=== PATIENT | female | born 1995 | race Caucasian/White ===

== ENCOUNTER 2020-04-28 16:21 | Emergency (ER) | payer OTHER, SELFPAY ==
--- NOTE | ~2020-04-28 | XR_ITS ---
EXAMINATION: XR shoulder LT min 2V DATE: 04/28/2020 17:24 INDICATION: Left shoulder pain. Injury. TECHNIQUE: 4 views of left shoulder were obtained. COMPARISON: None. FINDINGS: Bone alignment is normal. No fracture. Joint spaces are well maintained. IMPRESSION: 1. Normal left shoulder. Reviewed, dictated and finalized at location A. [employer] IMPRESSION: 1. Normal left shoulder.
[2020-04-28 16:40] VITALS: BP 142/74; PULSE 84; RESP 18; TEMP 36.6; O2SAT 100
--- NOTE | 2020-04-28 17:03 | ED.UPPEXIN ---
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 Patient approximately 2 days ago was lifting a patient and felt a pop or a snap in her left shoulder area patient used ice and took a dose of ibuprofen prior to arrival to the emergency department. Currently she is having pain specially with movement although she has good range of motion it is tender and painful with with palpation and with movement. There is no swelling no bruising. complaint: injury to: left and shoulder Other Extremity Injury: Left: shoulder Handedness: right Place: work Severity: moderate Severity scale (1-10): 7 Relieving factors: cold therapy, medication and rest Exacerbating factors: movement of extremity Context: other ( During heavy lifting) Associated symptoms: denies other symptoms Treatments prior to arrival: cold therapy and NSAIDS Related Data Allergies Allergy/AdvReac Type Severity Reaction Status Date / Time azithromycin Allergy Unknown Verified 04/28/20 17:02 Penicillins Allergy Unknown Verified 04/28/20 17:02 Sulfa (Sulfonamide Allergy Unknown Verified 04/28/20 17:02 Antibiotics) Review of Systems Review of Systems: All systems reviewed & are unremarkable except as noted in HPI and below PMFSH Past Medical History Medical History Patient denies medical problems Exam Const: General: no acute distress and alert Orientation/consciousness: patient oriented x3 HENMT: Head: normal to inspection Eyes: Conjunctivae: conjunctivae normal Pupils: Equal, round and reactive pupils present Direct Ophthalmoscopy: no photophobia Neck: Neck: normal visual inspection and no lymphadenopathy Chest: Chest palpation & inspection: normal inspection of the chest Resp: Effort & Inspection: normal respiratory effort Auscultation: clear to auscultation bilaterally Cardio: Rate: regular rate Rhythm: regular rhythm GI: GI Palp: Yes Soft to palpation : General: Yes no CVA tenderness Skin: General skin exam: normal color Rashes: no rashes Neuro: General: patient oriented x3, moves all extremities, no meningeal signs and no focal motor deficits Extrem: Other: left shoulder pain with some palpation, and mildly decreased range of motion with active and passive movement secondary to pain. Psych: Mental Status: mental status grossly normal Course Course Emergency Course: Patient resting comfortably a declined any pain medicine at this time placed ice over affected area. Reviewed shoulder x-ray with patient and told her there was no acute fractures. Vital Signs Vital signs: Vital Signs Temperature 36.6 C 04/28/20 16:40 Pulse Rate 84 04/28/20 16:40 Respiratory Rate 18 04/28/20 16:40 Blood Pressure 142/74 H 04/28/20 16:40 Pulse Oximetry 100 04/28/20 16:40 Temperature 36.6 C 04/28/20 16:40 Pulse Rate 84 04/28/20 16:40 Respiratory Rate 18 04/28/20 16:40 Blood Pressure 142/74 H 04/28/20 16:40 Pulse Oximetry 100 04/28/20 16:40 Critical Care Time Critical Care Time Critical Care Time: No Discharge Plan Discharge Clinical Impression: Sprain of left rotator cuff capsule Qualifiers: Encounter type: initial encounter Qualified Code(s): S43.422A - Sprain of left rotator cuff capsule, initial encounter Patient Disposition: Home, Self-Care Condition: Stable Instructions: Antibiotic Form, Shoulder Sprain (ED) Additional Instructions: take medicine as prescribed, can take ibuprofen 400 mg twice daily x1 week with meals and if symptoms persist or worsen should follow-up primary care physician. Pres
== END 2020-04-28 17:47 | disposition home or self-care (01) ==
PROVIDERS: Emergency Provider Emergency Medicine; PCP Family Medicine
DX: S43.422A Sprain of left rotator cuff capsule, initial encounter (principal); X50.9XXA Other and unspecified overexertion or strenuous movements or postures, initial encounter
CPT/HCPCS: 73030; 99283

== ENCOUNTER 2021-05-07 00:09 | Outpatient (RCR) | payer OTHER, SELFPAY ==
[2021-05-07 01:31] VITALS: BP 122/74; PULSE 100
== END 2021-05-31 13:44 | disposition home or self-care (01) ==
LOC: ANHOBOP 00:09
PROVIDERS: PCP Family Medicine; Visit Provider Obstetrics & Gynecology
DX: O36.8130 Decreased fetal movements, third trimester, not applicable or unspecified (principal); Z3A.36 36 weeks gestation of pregnancy
CPT/HCPCS: 59025

== ENCOUNTER 2021-05-19 20:21 | Observation (INO) | payer OTHER, SELFPAY ==
[2021-05-19] VITALS (7 sets, daily range): BP systolic 97–121; BP diastolic 58–81; PULSE 73–99; BMI 34.5
--- NOTE | 2021-05-20 01:55 | OBADM ---
This patient, Giovanna Callejas, admitted to the OB room Labor/Delivery/Recovery 105 for observation. Patient/family oriented to hospital policies and general routines including ID bracelet, bed and alarms, visiting hours, pain management, procedures, bathroom and other care routines, personal items, smoking policy, room service/diet, and visiting hours. Patient/Family are encouraged to report perceived risks to care and to ask questions if they do not understand what they are told or what they should do.
--- NOTE | 2021-06-06 17:00 | PM.OBTRLD ---
OB - Triage/Final Diagnosis Visit Information Comments/Additional reasons for admission: I have assessed the risk for this patient, Giovanna Callejas, and determined that she would benefit from observation care. Final Diagnosis (1) False labor: Code(s): O47.9 - False labor, unspecified Status: Acute
== END 2021-05-19 23:50 | disposition home or self-care (01) ==
PROVIDERS: Admitting Provider Obstetrics & Gynecology; PCP Family Medicine; Visit Provider Obstetrics & Gynecology
DX: O47.9 False labor, unspecified (principal); Z3A.00 Weeks of gestation of pregnancy not specified
CPT/HCPCS: G0378; G0379

== ENCOUNTER 2021-05-23 21:49 | Inpatient (IN) | payer OTHER, SELFPAY ==
[2021-05-24] VITALS (86 sets, daily range): BP systolic 80–136; BP diastolic 45–107; PULSE 53–135; RESP 16–18; TEMP 36.6–36.9; O2SAT 97–100; BMI 36.3
[2021-05-24 01:49] LABS: Basophils Absolute Auto 0.1 K/mm3 (0.0-0.1); Basophils Percent Auto 0.4 % (0.2-1.2); Eosinophils Absolute Auto 0.2 K/mm3 (0-0.3); Eosinophils Percent Auto 1.2 % (0-4.4); Hematocrit 34.9 % (37.0-47.0); Hemoglobin 11.5 g/dL (12.0-15.0); Immature Granulocyte Absolute 0.15 K/mm3 (0.00-0.031); Immature Granulocyte Percent A 1.2 % (0-0.5); Lymphocytes Absolute Auto 3.32 K/mm3 (0.9-3.2); Lymphocytes Percent Auto 27.2 % (18.3-44.2); Mean Corpuscular Hemoglobin 29.4 pg (26-34); Mean Corpuscular Volume 89.3 fl (80-100); Mean Platelet Volume 10.7 fl (7.4-10.4); Monocytes Absolute Auto 1.1 K/mm3 (0.1-0.6); Monocytes Percent Auto 8.7 % (2.6-8.5); Neutrophils Absolute Auto 7.5 K/mm3 (1.3-6.7); Neutrophils Percent Auto 61.3 % (45.5-73.1); Platelet Count Result 265 k/mm3 (150-375); Red Blood Count 3.91 M/mm3 (4.2-5.4); Red Cell Distribution Width 14.2 % (11.5-14.5); White Blood Count 12.2 K/mm3 (4.5-10.0)
[2021-05-24 03:36] LABS: Hepatitis B Surface Antigen Negative (Negative)
[2021-05-24] MEDS: fentaNYL CITRATE INJ (*CRX) 100 MCG/2 ML VIAL 50 MCG IV PUSH ×2 (03:43→04:46)
[2021-05-24] MEDS: LACTATED RINGERS 1,000 ML 125 ML IV CONT ×2 (03:45→05:33)
[2021-05-24 03:52] LABS: Rubella IgG Antibody 28.5 IU/ML
[2021-05-24] MEDS: OXYTOCIN 30 UNITS/NS 500 ML 30 UNITS/500 ML BAG IV CONT (05:50)
--- NOTE | 2021-05-24 07:11 | PM.IMHP ---
H&P: HPI History of Present Illness Date/Time: 05/24/21 07:11 25-year-old multiparous patient presents at 39 weeks gestation in active labor. Her care was then to [facility] she transferred she is negative for group B strep and she has early ultrasound visit confirming dates Chief Complaint: active labor at term Review of Systems Review of Systems: All systems reviewed & are unremarkable except as noted in HPI and below PMFSH Past Medical History Medical History Patient denies medical problems Social History Social History Smoking status: Never smoker Second hand tobacco smoke exposure: No Spiritual care concerns: No Meds Home Medications and Allergies Home Medications Medication Instructions Recorded Confirmed Type cyclobenzaprine 5 mg PO TID #20 tablet 04/28/20 05/19/21 Rx vit-ferrous sulfat-FA 1 tablet PO DAILY 05/19/21 05/19/21 History Allergies Allergy/AdvReac Type Severity Reaction Status Date / Time azithromycin Allergy Unknown Verified 04/28/20 17:02 Penicillins Allergy Unknown Verified 04/28/20 17:02 Sulfa (Sulfonamide Allergy Unknown Verified 04/28/20 17:02 Antibiotics) Vital Signs Vital Signs - 24 hr 05/24/21 02:14 05/24/21 02:18 05/24/21 03:42 Temperature 97.8 F Pulse Rate 86 78 Blood Pressure 122/74 129/79 Pulse Oximetry 05/24/21 04:00 05/24/21 04:30 05/24/21 05:00 Temperature Pulse Rate 83 87 81 Blood Pressure 113/76 117/80 117/79 Pulse Oximetry 05/24/21 05:13 05/24/21 05:17 05/24/21 05:18 Temperature Pulse Rate 111 H 73 Blood Pressure 119/75 121/50 L Pulse Oximetry 99 100 05/24/21 05:19 05/24/21 05:21 05/24/21 05:26 Temperature Pulse Rate 72 Blood Pressure 136/95 H 116/55 L Pulse Oximetry 100 98 99 05/24/21 05:28 05/24/21 05:30 05/24/21 05:31 Temperature Pulse Rate 71 72 Blood Pressure 101/52 L 111/61 Pulse Oximetry 100 05/24/21 05:34 05/24/21 05:36 05/24/21 05:39 Temperature Pulse Rate 75 71 73 Blood Pressure 107/52 L 104/58 L 94/53 L Pulse Oximetry 100 05/24/21 05:41 05/24/21 05:42 05/24/21 05:46 Temperature Pulse Rate 71 65 Blood Pressure 101/52 L 99/45 L Pulse Oximetry 100 99 05/24/21 05:48 05/24/21 05:51 05/24/21 05:54 Temperature Pulse Rate 69 73 72 Blood Pressure 98/51 L 99/57 L 87/57 L Pulse Oximetry 98 05/24/21 05:56 05/24/21 05:57 05/24/21 06:00 Temperature Pulse Rate 68 65 Blood Pressure 92/57 L 100/55 L Pulse Oximetry 97 05/24/21 06:01 05/24/21 06:03 05/24/21 06:06 Temperature Pulse Rate 68 68 Blood Pressure 113/58 L 115/60 Pulse Oximetry 99 100 05/24/21 06:10 05/24/21 06:11 05/24/21 06:12 Temperature Pulse Rate 72 76 Blood Pressure 110/57 L 110/59 L Pulse Oximetry 100 05/24/21 06:15 05/24/21 06:16 05/24/21 06:19 Temperature Pulse Rate 76 58 L Blood Pressure 112/63 80/47 L Pulse Oximetry 100 05/24/21 06:21 05/24/21 06:24 05/24/21 06:26 Temperature Pulse Rate 73 71 Blood Pressure 115/59 L 115/67 Pulse Oximetry 100 99 05/24/21 06:27 05/24/21 06:31 05/24/21 06:34 Temperature Pulse Rate 72 64 73 Blood Pressure 122/65 119/72 115/69 Pulse Oximetry 100 05/24/21 06:36 05/24/21 06:37 05/24/21 06:39 Temperature Pulse Rate 70 73 Blood Pressure 116/60 114/68 Pulse Oximetry 100 05/24/21 06:41 05/24/21 06:42 05/24/21 06:45 Temperature Pulse Rate 73 69 Blood Pressure 120/66 116/67 Pulse Oximetry 99 05/24/21 06:46 05/24/21 06:48 05/24/21 06:51 Temperature Pulse Rate 68 74 Blood Pressure 115/62 121/57 L Pulse Oximetry 100 98 05/24/21 06:55 05/24/21 06:56 05/24/21 06:57 Temperature Pulse Rate 75 74 Blood Pressure 116/63 123/65 Pulse Oximetry 98 05/24/21 07:01 05/24/21 07:03 05/24/21 07:06 Temperature Pulse Rat
[2021-05-24] MEDS: diphenhydrAMINE HCl INJ 50 MG/ML VIAL 25 MG IV PUSH (07:13)
--- NOTE | 2021-05-24 07:44 | PM.OBPRVD ---
OB - Delivery Note Procedure Delivery date: 05/24/21 Intrapartal events: None Induction method: none Delivery augmentation: pitocin Delivery monitor: external FHT Route of delivery: Episiotomy description: None Laceration Description: None Specimen: No Quantitative Blood Loss (ml): 59 Anesthesia type: Epidural Disposition: floor Baby Date of : 05/24/21 Time of : 07:35 Weeks of gestation at delivery: 39 gender: Male Weight (pounds): 6 Weight (ounces): 11 presentation: vertex position: Right Occiput Anterior Placenta delivery description: Spontaneous cord vessel description: 3 Vessels score one minute: 8 score five minutes: 9
[2021-05-24] MEDS: OXYTOCIN 30 UNITS/NS 500 ML 30 UNITS/500 ML BAG 125 UNITS IV CONT (08:12)
[2021-05-24] MEDS: IBUPROFEN 600 MG TABLET PO ×2 (10:45→23:19)
[2021-05-24 10:52] LABS: Rapid Plasma Reagin Non-Reactive (NonReactive)
[2021-05-25 05:00] VITALS: BP 115/73; PULSE 78; RESP 16; TEMP 37.1
[2021-05-25 05:48] LABS: Hematocrit 33.1 % (37.0-47.0); Hemoglobin 10.9 g/dL (12.0-15.0)
[2021-05-25 07:30] VITALS: BP 96/54; PULSE 72; RESP 16; TEMP 36.8; O2SAT 99
--- NOTE | 2021-05-25 07:49 | P.PNOB_ITS ---
OB - PN: Subj Subjective Date/time seen: 05/25/21 07:49 Patient comments: no complaints and pain well controlled baby status: doing well OB - PN: Obj Data Labs CBC & Chem 7: 05/25/21 05:23 Labs: Laboratory Results - last 24 hr 05/24/21 05/25/21 01:44 05:23 Hgb 10.9 L Hct 33.1 L RPR Non-reactive OB - PN A/P Plan day: 1 Plan: routine care, discharge home and follow up 6 weeks Time Spent With Patient Time: Total time spent is greater than 50% in coordination of care (as documented) at patient's floor/unit and/or counseling patient: Time with patient: less than 15 minutes Review of Systems Review of Systems: All systems reviewed & are unremarkable except as noted in HPI and below Exam Const: General: no acute distress Eyes: General: appearance normal, both eyes and all related structures Neck: Neck: supple and no JVD Thyroid: thyroid normal Resp: Effort & Inspection: normal respiratory effort Auscultation: clear to auscultation bilaterally Cardio: Rate: regular rate Rhythm: regular rhythm GI: Inspection: non-distended GI Palp: Yes Soft to palpation, No Tenderness to palpation present (GI) and No Guarding due to palpation present (GI) Auscultation: normal bowel sounds : General: Yes bladder normal to palpation External Female Exam: normal external appearance Speculum Exam - Vagina: normal vaginal discharge and No v aginal bleeding Speculum Exam - Cervix: nontender Bimanual exam- vagina & uterus: bladder normal to palpation and No Cervical tenderness present OB/external & speculum: No vaginal bleeding Skin: General skin exam: no rashes or lesions noted Extrem: General: normal to inspection and no edema Psych: Mental Status: mental status grossly normal Affect: normal affect
--- NOTE | 2021-05-25 07:50 | PM.DS ---
DS: Admitting Diagnosis Discharge Date 05/25/21 Admitting Diagnosis term in labor DS: Summary Hospital Course Hospital Course: patient was admitted in active labor at term. She underwent unremarkable spontaneous vaginal delivery with. Her hospital course was unremarkable thereafter. Time Spent with Patient Time attestation: Total time spent providing and/or coordinating discharge services: Exam Const: General: no acute distress Eyes: General: appearance normal, both eyes and all related structures Neck: Neck: supple and no JVD Thyroid: thyroid normal Resp: Effort & Inspection: normal respiratory effort Auscultation: clear to auscultation bilaterally Cardio: Rate: regular rate Rhythm: regular rhythm GI: Inspection: non-distended GI Palp: Yes Soft to palpation, No Tenderness to palpation present (GI) and No Guarding due to palpation present (GI) Auscultation: normal bowel sounds : General: Yes bladder normal to palpation External Female Exam: normal external appearance Speculum Exam - Vagina: normal vaginal discharge and No vaginal bleeding Speculum Exam - Cervix: nontender Bimanual exam- vagina & uterus: bladder normal to palpation and No Cervical tenderness present OB/external & speculum: No vaginal bleeding Skin: General skin exam: no rashes or lesions noted Extrem: General: normal to inspection and no edema Psych: Mental Status: mental status grossly normal Affect: normal affect DS: Data Data Completed and Pending Labs on day of discharge: Labs from last 24 hours 05/25/21 05/24/21 05:23 01:44 Hgb 10.9 L Hct 33.1 L RPR Non-reactive Discharge Plan Discharge Attending physician on discharge: Rajeev Alamnzar Discharging Clinician: Rajeev Almanzar Patient Disposition: Home, Self-Care Activity: may shower, no straining and pelvic rest Diet: heart healthy Wound Care Instructions: follow printed instructions Patient Instructions: Antibiotic Form Stand Alone Forms: General Discharge Information Follow-up/Referrals: Rajeev Almanzar MD [Physician] - Discharge Medications: Continued cyclobenzaprine 5 mg tablet 5 mg PO TID Qty: 20 RF: 0 vit-ferrous sulfat-FA 27 mg iron- 0.8 mg Tablet 1 tablet PO DAILY RF: 0 Date of admission: 05/23/21 21:49 Primary Care Provider: CodyGrabiel Admitting Provider: Rajeev Almanzar Attending physician on admission: Rajeev Almanzar Condition: Stable
--- NOTE | 2021-05-25 08:39 | WPDANLDPN2 ---
Anes-Prog Note L&D Date/Time: 05/25/21 08:39 Comfortable throughout: labor and delivery Neuraxial method: epidural Epidural/Spinal procedure site: clean & non-tender Neuro status: Neuro function grossly intact. Cardiovascular status: normal Respiratory status: normal Airway patency: baseline Mental status: baseline Post-Op hydration status: normal Vital Signs: Last Vital Signs Temp 36.8 C 05/25/21 07:30 Pulse 72 05/25/21 07:30 Resp 16 05/25/21 07:30 BP 96/54 L 05/25/21 07:30 Pulse Ox 99 05/25/21 07:30 Pain score (VAS): 0 Post-procedural complaints: none Patient feedback: Patient satisfied with anesthetic care.
--- NOTE | 2021-05-25 09:55 | PC.NURSE ---
Observed mother is able to independently latch infant with appropriate positioning/alignment. She denies any nipple discomfort, is feeding as required and waking infant to feed if needed. is more awake and making eager attempts with short bursts of suckling and maintaining latch Infant is supplemented after all feedings. Mother will entice infant with supplementation and then return to breast, responds with increased short bursts of nursing is currently meeting outcomes for weight, output, jaundice and feeding frequencies. Mother continues to pump after all feedings without difficulties or discomfort. Mother has a pump for home use, she is comfortable with use. Assisted mother with pump kit and to use as a hand pump if needed. Discussed the difference of effective vs ineffective feeding. Reviewed infant requires supplementation after all feedings. He is latching with good burst of suckling, he is not feeding consistently with adequate milk transfer at this time and continues to need to be supplement after . Feeding plan discussed, Feeding Plan is for mother to put to breast each feeding for up to 15 minutes, then pace feed supplement 25-30 mls and pump for 10-15 minutes. Discussed increasing supplementation as infant requires to satisfactions. Reviewed paced feeding and suggested to stop when is satisfied, as long as infant is having required output. With increased supplementation infant may not want to feed for 4 hours. Mother will continue to pump on infant feeding schedule and will increase session to 20 minutes if pumping every 4 hours. If begins to nurse effectively with long draws and frequent swallowing noted, infant may decrease supplementation and discontinue pumping. Advised not to discontinue supplement until a pre/post feeding evaluation by infant PCP, Follow up RN or LC is completed. Mother states she feels confident to continue feeding plan at home. Reviewed transition to breast milk, signs of adequate intake, and engorgement/relief. Instructed to call ICP if intake/output less than required. Reviewed regular medications mother is taking. Information provided per Wilma. Reviewed community resources on the [facility] website and in the Mom/Baby guide. Information on outpatient services provided. Mother has no further questions at this time.
[2021-05-25] MEDS: IBUPROFEN 600 MG TABLET PO (10:59)
[2021-05-25] MEDS: MULTIVIT/MIN/PREN/FOL AC/IRON TABLET 1 TAB PO (10:59)
[2021-05-25] MEDS: TETANUS,DIPHTHERIA,AC PERTUSSIS ADULT (0.5 ML) BOOSTRIX IM (11:00)
--- NOTE | 2021-05-25 14:24 | PC.NURSE ---
1100 Patient was given the opportunity to view the discharge video Mother & Baby Care, The First Two Weeks and to ask questions. Patient declined viewing the video and has been given the mother/baby guide for home reference.
== END 2021-05-25 12:40 | disposition home or self-care (01) | DRG 807 ==
LOC: ANHLDR 05-24 00:27 → ANHOB2 05-24 10:44
PROVIDERS: Admitting Provider Obstetrics & Gynecology; PCP Family Medicine; Visit Provider Obstetrics & Gynecology
DX: O76 Abnormality in fetal heart rate and rhythm complicating labor and delivery (principal); Z37.0 Single live birth; Z3A.39 39 weeks gestation of pregnancy
CPT/HCPCS: 36415; 85014; 85018; 85025; 86592; 86762; 86850; 86900; 86901; 87340; 90715; A9270; J1200; J2590; J2795; J3010; J7120

== ENCOUNTER 2023-06-23 11:25 | Outpatient (CLI) | payer BC, SELFPAY ==
--- NOTE | ~2023-06-23 | US_ITS ---
Pelvic ultrasound. Clinical History: First trimester , amenorrhea Technique: Realtime transabdominal and transvaginal scanning of the pelvis was performed. Color flow Doppler and Doppler spectral analysis were performed. Findings: The uterus is anteverted, and contains an intrauterine gestation. [place]-rump length of 1.3 cm corresponds to an estimated gestational age is 7 weeks 4 days. heart rate is 151 bpm. Small subchorionic hemorrhage present. Neither ovary seen. No adnexal mass seen. There is no evidence of free fluid in the cul de sac. Impression: Live intrauterine gestation with estimated gestational age of 7 weeks 4 days. heart rate is 151 bpm. Small subchorionic hemorrhage. Reviewed, dictated and finalized at location M. [employer] Impression: Live intrauterine gestation with estimated gestational age of 7 weeks 4 days. F etal heart rate is 151 bpm. Small subchorionic hemorrhage.
== END 2023-06-23 11:26 ==
PROVIDERS: PCP Registered Nurse; Visit Provider Registered Nurse
DX: O46.8X1 Other antepartum hemorrhage, first trimester (principal); Z3A.01 Less than 8 weeks gestation of pregnancy
CPT/HCPCS: 76801; 76817